=== PATIENT | male | born 1965 | race Caucasian/White ===

== ENCOUNTER 2017-01-28 09:17 | Day surgery (SDC) | payer BC ==
[~2017-01-28] VITALS: Ht 185.4 cm; Wt 79.8 kg
[2017-01-28] MEDS ORDERED: CLARITIN-D 10 M1 T24 PO (09:49)
[2017-01-28 09:51] VITALS: BP 135/92; PULSE 68; TEMP 97.8
[2017-01-28 11:25] VITALS: BP 123/97; PULSE 71; TEMP 97.6
[2017-01-28 11:35] VITALS: BP 129/87; PULSE 74; TEMP 97.6
[2017-01-28 11:50] VITALS: BP 129/87; PULSE 65; TEMP 97.6
== END 2017-01-28 12:05 | disposition home or self-care (01) ==
LOC: SDCO 09:17
DX: Z12.11 Encounter for screening for malignant neoplasm of colon (principal); D12.2 Benign neoplasm of ascending colon; D12.5 Benign neoplasm of sigmoid colon
CPT/HCPCS: J2250; J2405; J3010; J7030

== ENCOUNTER 2020-04-04 08:26 | Day surgery (SDC) | payer BC ==
[~2020-04-04] VITALS: Ht 185.4 cm; Wt 81.9 kg
[~2020-04-04 08:26] MED LIST: CLARITIN-D 10 M1 T24 PO
[2020-04-04 09:08] VITALS: BP 117/52; PULSE 63; TEMP 98.3
--- NOTE | 2020-04-04 09:15 | NUR ---
TO RM AT 0840- CALL LIGHT IN REACH AT BEDSIDE.
[2020-04-04 10:15] VITALS: BP 153/103; PULSE 71; TEMP 97.7
--- NOTE | 2020-04-04 10:15 | NUR ---
pt returned to [facility] via cart from [facility], pt talkative, walked to chair with assist, in room, call light in reach, takes juice, no c/o
[2020-04-04 10:45] VITALS: BP 133/88; PULSE 73
--- NOTE | 2020-04-04 10:45 | NUR ---
Patient returns to [facility] per cart after having colonoscopy and assisted from cart to recliner with 2 person assist. IV fluids continue to infuse. Spouse in room. Call light in reach. Denies pain or nausea. Given juice and crackers.
[2020-04-04 11:00] VITALS: BP 124/87; PULSE 67
--- NOTE | 2020-04-04 11:00 | NUR ---
Tolerated crackers and juice without nausea. IV fluids continue to infuse.
--- NOTE | 2020-04-04 11:10 | NUR ---
Dr. Meza to talk with the patient and all questions answered.
[2020-04-04 11:15] VITALS: BP 123/81; PULSE 82
--- NOTE | 2020-04-04 11:20 | NUR ---
Dismissal instructions given and voices understanding of these. Patient dresses self and dismissed to home driven by spouse and taken to the front door per wheelchair by this RN and assisted into car.
[2020-04-04 11:23] VITALS: BP 105/62; PULSE 62
== END 2020-04-04 11:20 | disposition home or self-care (01) ==
LOC: SDCO 08:26
DX: Z12.11 Encounter for screening for malignant neoplasm of colon (principal); D12.5 Benign neoplasm of sigmoid colon; K57.30 Diverticulosis of large intestine without perforation or abscess without bleeding; Z86.010 Personal history of colon polyps; Z88.6 Allergy status to analgesic agent
CPT/HCPCS: J2250; J2405; J3010; J7030